=== PATIENT | male | born 1955 | race Caucasian/White ===

== ENCOUNTER → 2019-01-05 | Outpatient (CLI) | payer OTHER ==
[2019-01-05 20:49] LABS: ALBUMIN 3.2 GM/DL (3.2-5.2); ALT/SGPT 176 U/L (12-78); BILIRUBIN,TOTAL 0.3 MG/DL (0.2-1.0); BLOOD UREA NITROGEN 25 MG/DL (7-18); CALCIUM LEVEL 8.9 MG/DL (8.8-10.2); CARBON DIOXIDE LEVEL 28 MEQ/L (21-32); CHLORIDE LEVEL 109 MEQ/L (98-107); CREATININE FOR GFR 1.12 MG/DL (0.70-1.30); GLOMERULAR FILTRATION RATE > 60.0 (>49); GLUCOSE, FASTING 84 MG/DL (70-100); POTASSIUM SERUM 4.5 MEQ/L (3.5-5.1); SODIUM LEVEL 143 MEQ/L (136-145); TOTAL PROTEIN 6.8 GM/DL (6.4-8.2)
== END ==
LOC: M WUC 18:59
PROVIDERS: ATTEND Physician Assistant
DX: A69.20 Lyme disease, unspecified (principal)